=== PATIENT | male | born 1955 ===

== ENCOUNTER 2017-10-07 11:34 | Emergency (ER) | payer OTHER ==
[2017-10-07 11:41] VITALS: BP 152/98; PULSE 93; TEMP 98; O2SAT 99; BMI 21.5
[2017-10-07] MEDS ORDERED: Sodium Chloride 0.9% 1,000 ML IV STA (11:54)
--- NOTE | 2017-10-07 11:58 | ED PDOC ---
HPI: General Adult Time Seen by Provider: 10/07/17 11:42 Chief Complaint (Nursing): Back Pain Chief Complaint (Provider): Back pain History Per: Patient History/Exam Limitations: no limitations Onset/Duration Of Symptoms: Days (yesterday) Have you had recent travel within the past 21 days to any of the following countries: [place], [place], [place] or [place]?: Yes Additional Complaint(s): Pt. with left lower abd pain and left lower back. Accidentally fell yesterday and landed on the left side in the bathroom. No head, neck, chest, extremity injury. Was able to get up and move around. Currently pain on moving around. Did not take any meds. No numbness, tingles, weakness, dizziness, facial pain, dysuria. Past Medical History Reviewed: Nursing Documentation, Vital Signs Vital Signs: Last Vital Signs Temp 98 F 10/07/17 11:40 Pulse 93 H 10/07/17 11:40 Resp BP 152/98 H 10/07/17 11:40 Pulse Ox 99 10/07/17 12:07 - Medical History PMH: No Chronic Diseases - Surgical History Surgical History: No Surg Hx - Family History Family History: States: Unknown Family Hx - Living Arrangements Living Arrangements: With Family - Social History Current smoker - smoking cessation education provided: No Alcohol: None Drugs: Denies - Home Medications Home Medications: Ambulatory Orders Medication Instructions Recorded Ibuprofen [Motrin] 600 mg PO TID 7 Days tab 10/07/17 - Allergies Allergies/Adverse Reactions: Allergies Allergy/AdvReac Type Severity Reaction Status Date / Time No Known Allergies Allergy Verified 10/07/17 11:53 Review of Systems ROS Statement: Except As Marked, All Systems Reviewed And Found Negative Gastrointestinal: Positive for: Abdominal Pain Musculoskeletal: Positive for: Back Pain Physical Exam - Reviewed Nursing Documentation Reviewed: Yes Vital Signs Reviewed: Yes - Physical Exam Appears: Positive for: Non-toxic, No Acute Distress Head Exam: Positive for: ATRAUMATIC, NORMAL INSPECTION, NORMOCEPHALIC Skin: Positive for: Normal Color, Warm, DRY Eye Exam: Positive for: EOMI, Normal appearance, PERRL ENT: Positive for: Normal ENT Inspection Neck: Positive for: Normal, Painless ROM Cardiovascular/Chest: Positive for: Regular Rate, Rhythm Respiratory: Positive for: CNT, Normal Breath Sounds Gastrointestinal/Abdominal: Positive for: Bowel Sounds, Soft, Tenderness (L lower abd) Back: Positive for: Other (left lower back hand). Negative for: L CVA Tenderness, R CVA Tenderness Extremity: Positive for: Normal ROM Neurologic/Psych: Positive for: Alert, Oriented - Laboratory Results Result Diagrams: 10/07/17 12:16 10/07/17 12:16 Interpretation Of Abn Labs: no acute Urine dip results: Negative for: Blood - ECG O2 Sat by Pulse Oximetry: 99 Pulse Ox Interpretation: Normal - Progress ED Course And Treament: CT neg 1417: Stable. AAOx3. Pain free. Tolerated PO. No trauma pathology. Fu with pcp. Disposition - Clinical Impression Clinical Impression: Back pain, Abdominal trauma - Patient ED Disposition Is Patient to be Admitted: No Counseled Patient/Family Regarding: Studies Performed, Diagnosis, Need For Followup, Rx Given - Disposition Referrals: [facility] [Outside] - 10/08/17 Disposition: Routine/Home Disposition Time: 14:18 Condition: STABLE Additional Instructions: Return if not better in 3 days. Prescriptions: Ibuprofen [Motrin] 600 mg PO TID 7 Days tab Instructions: Low Back Pain (DC)
[2017-10-07] MEDS ORDERED: Morphine 4 MG/ML VIAL ONE (12:18)
[2017-10-07 12:28] LABS: BASO % 0.5 % (0.0-2.0); EOS % 0.3 % (0.0-4.0); HEMOGLOBIN 14.7 g/dL (12.0-18.0); LYMPH # 0.8 K/uL (1.0-4.3); LYMPH % 14.7 % (20.0-40.0); MEAN CELL VOLUME 103.3 fl (80.0-94.0); MEAN CORPUSCULAR HEMOGLOBIN 35.4 pg (27.0-31.0); MEAN CORPUSCULAR HGB CONC 34.3 g/dL (33.0-37.0); MEAN PLATELET VOLUME 7.5 fl (7.2-11.7); MONO # 0.5 K/uL (0.0-0.8); NEUT # 4.1 K/uL (1.8-7.0); NEUT % 74.5 % (50.0-75.0); RBC 4.15 Mil/uL (4.40-5.90); RED CELL DISTRIBUTION WIDTH 13.4 % (11.5-14.5); WHITE BLOOD COUNT 5.5 K/uL (4.8-10.8)
[2017-10-07 12:30] LABS: BLOOD UREA NITROGEN 8 mg/dl (9-20); CALCIUM 9.2 mg/dL (8.4-10.2); GFR AFRICAN-AMERICAN > 60; GFR NON-AFRICAN AMERICAN > 60
[2017-10-07] MEDS ORDERED: Iohexol 300 100 ML IJ ONE (12:46)
[2017-10-07] MEDS ORDERED: Sodium Chloride 0.9% 100 ML ONE (12:46)
--- NOTE | 2017-10-07 13:56 | CT ---
PROCEDURE: CT Abdomen and Pelvis with contrast HISTORY: trauma; pain L back and L abd/pelvis COMPARISON: None. TECHNIQUE: Contrast dose: 95 mL Omnipaque 300 Radiation dose: Total exam DLP = 276.5 mGy-cm. This CT exam was performed using one or more of the following dose reduction techniques: Automated exposure control, adjustment of the mA and/or kV according to patient size, and/or use of iterative reconstruction technique. FINDINGS: LOWER THORAX: Heart size normal. Emphysematous changes. No focal consolidation or pleural effusion. LIVER: Hepatic steatosis. No gross lesion or ductal dilatation. GALLBLADDER AND BILE DUCTS: Unremarkable. PANCREAS: Unremarkable. No gross lesion or ductal dilatation. SPLEEN: Unremarkable. ADRENALS: Unremarkable. No mass. KIDNEYS AND URETERS: Unremarkable. No hydronephrosis. No solid mass. VASCULATURE: Unremarkable. No aortic aneurysm. BOWEL: Unremarkable. No obstruction. No gross mural thickening. APPENDIX: Normal appendix. PERITONEUM: Fat containing left inguinal hernia. No free fluid. No free air. LYMPH NODES: Unremarkable. No enlarged lymph nodes. BLADDER: Unremarkable. REPRODUCTIVE: Unremarkable. BONES: No acute fracture. OTHER FINDINGS: None. IMPRESSION: No acute abdominal pelvic pathology.
== END 2017-10-07 14:34 | disposition home or self-care (01) ==
LOC: H.ER 11:34
DX: M54.9 Dorsalgia, unspecified (principal); W19.XXXA Unspecified fall, initial encounter; Y92.89 Other specified places as the place of occurrence of the external cause
CPT/HCPCS: 74177; 80048; 85025; 96374; 99282; J2270; J7040; Q9967

== ENCOUNTER 2018-05-23 10:07 | Inpatient (IN) | payer OTHER ==
[2018-05-23 10:18] VITALS: BMI 21.4
--- NOTE | 2018-05-23 10:55 | ED PDOC ---
HPI: Back Time Seen by Provider: 05/23/18 10:33 Chief Complaint (Nursing): Back Pain Chief Complaint (Provider): severe back pain History Per: Patient History/Exam Limitations: no limitations Onset/Duration Of Symptoms: Days (5+) Current Symptoms Are (Timing): Still Present Quality Of Discomfort: Sharp Severity: Severe Previous Symptoms: Back Pain Associated Symptoms: None Exacerbating Factor(s): Turning, Movement, Sitting, Standing Additional Complaint(s): 63yo male c/o worsening low back pain radiating to R foot w some difficulty ambulating. Denies fever, or focal weakness. States drinks beers occasionally, last drink 15 days ago. Active smoker. Took naprosyn for pain this morning. Past Medical History Reviewed: Historical Data, Nursing Documentation, Vital Signs Vital Signs: Last Vital Signs Temp 97.6 F 05/23/18 10:16 Pulse 84 05/23/18 10:16 Resp 20 05/23/18 10:16 BP 135/84 05/23/18 10:16 Pulse Ox 99 05/23/18 10:16 - Medical History PMH: Back Problems - Family History Family History: States: Unknown Family Hx - Living Arrangements Living Arrangements: With Family - Social History Current smoker - smoking cessation education provided: Yes Alcohol: Occasional - Home Medications Home Medications: Ambulatory Orders Medication Instructions Recorded Naproxen [Naprosyn] 500 mg PO Q12 PRN 05/23/18 - Allergies Allergies/Adverse Reactions: Allergies Allergy/AdvReac Type Severity Reaction Status Date / Time No Known Allergies Allergy Verified 10/07/17 11:53 Review of Systems ROS Statement: Except As Marked, All Systems Reviewed And Found Negative Constitutional: Negative for: Fever Cardiovascular: Negative for: Chest Pain Respiratory: Negative for: Shortness of Breath Gastrointestinal: Negative for: Abdominal Pain Musculoskeletal: Positive for: Back Pain, Leg Pain Skin: Negative for: Rash, Lesions Neurological: Positive for: Numbness. 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 Negative for: Facial Droop - Laboratory Results Result Diagrams: 05/23/18 11:25 05/23/18 11:25 - ECG ECG: Positive for: Interpreted By Me ECG Rhythm: Positive for: Normal QRS, Sinus Rhythm. Negative for: ST/T Changes Rate: 72 O2 Sat by Pulse Oximetry: 99 Pulse Ox Interpretation: Normal Medical Decision Making Medical Decision Making: d/w Dr Graves patient's neurosurgeon rec obs admission for eval as exhausted outpatient options CXR read as nodule R hilum, given smoking history, obtain CT chest to gauge for malignancy, Dr Sanches admitting MD aware. Disposition - Clinical Impression Clinical Impression: Acute back pain - Patient ED Disposition Is Patient to be Admitted: Yes - Disposition Disposition Time: 10:57 Condition: STABLE - Pt Status Changed To: Hospital Disposition Of: Observation
--- NOTE | 2018-05-23 11:07 | RAD ---
Date of service: 05/23/2018 HISTORY: Chest pain COMPARISON: No prior. TECHNIQUE: Chest PA and lateral FINDINGS: LINES AND TUBES: None. LUNG AND PLEURA: The lungs are hyperinflated and there is peribronchial thickening with chronic changes in both lungs. There is an apparent 12 mm nodular opacity in the right perihilar region. No pleural effusion or pneumothorax. HEART AND MEDIASTINUM: The heart is not enlarged. No aortic atherosclerotic calcification present. The hilar and mediastinal contours are within normal limits. SKELETAL STRUCTURES: The bony structures are within normal limits for the patient's age. VISUALIZED UPPER ABDOMEN: Normal. OTHER FINDINGS: None. IMPRESSION: No active pulmonary disease. COPD. Apparent 12 mm nodular opacity in the right perihilar region is nonspecific, dedicated CT scan without intravenous contrast is recommended to exclude parenchymal nodule. The final report has been tagged to the PA review folder.
[2018-05-23 11:15] LABS: URINE BILIRUBIN NEGATIVE (NEGATIVE); URINE BLOOD NEGATIVE (NEGATIVE); URINE CLARITY CLEAR (Clear); URINE COLOR YELLOW (YELLOW); URINE GLUCOSE (UA) NEG (NEGATIVE); URINE LEUKOCYTE ESTERASE NEG Leu/uL (Negative); URINE PROTEIN NEGATIVE (NEGATIVE); URINE UROBILINOGEN 0.2-1.0 mg/dL (0.2-1.0)
[2018-05-23 11:35] LABS: BASO % 0.4 % (0.0-2.0); EOS # 0.1 K/uL (0.0-0.7); EOS % 0.7 % (0.0-4.0); HEMOGLOBIN 14.4 g/dL (12.0-18.0); LYMPH # 1.3 K/uL (1.0-4.3); MEAN CELL VOLUME 105.5 fl (80.0-94.0); MEAN CORPUSCULAR HEMOGLOBIN 35.3 pg (27.0-31.0); MEAN CORPUSCULAR HGB CONC 33.5 g/dL (33.0-37.0); MEAN PLATELET VOLUME 7.5 fl (7.2-11.7); MONO # 0.9 K/uL (0.0-0.8); MONO % 10.9 % (0.0-10.0); NEUT # 5.7 K/uL (1.8-7.0); NRBC % 0.1 % (0.0-0.0); RBC 4.08 Mil/uL (4.40-5.90)
[2018-05-23 11:39] LABS: PROTHROMBIN TIME 10.8 Seconds (9.8-13.1)
[2018-05-23 11:42] LABS: PARTIAL THROMBOPLASTIN TIME 27.3 Seconds (25.6-37.1)
[2018-05-23 11:46] LABS: ALB/GLOB RATIO 1.4 (1.0-2.1); ALBUMIN 4.3 g/dL (3.5-5.0); ALT/SGPT 62 U/L (21-72); AST/SGOT 38 U/L (17-59); BLOOD UREA NITROGEN 12 mg/dl (9-20); CALCIUM 9.3 mg/dL (8.4-10.2); GFR NON-AFRICAN AMERICAN > 60
--- NOTE | 2018-05-23 13:31 | CT ---
Date of service: 05/23/2018 PROCEDURE: CT Chest without contrast HISTORY: nodule on CXR, due for spinal surgery COMPARISON: Not available TECHNIQUE: Contiguous axial images were obtained through the chest without intravenous contrast enhancement. Sagittal and coronal reconstructions were performed. Radiation dose (DLP): 259.72 mGy-cm. This CT exam was performed using one or more of the following dose reduction techniques: Automated exposure control, adjustment of the mA and/or kV according to patient size, and/or use of iterative reconstruction technique. FINDINGS: LUNGS: No pulmonary infiltrate. Mild centrilobular pulmonary emphysema. 1.4 cm partially calcified mass in the superior segment right lower lobe containing both nodular calcification as well as probable fat attenuation material. Findings consistent with calcified hamartoma. Rule out calcified granuloma. No other pulmonary mass is identified. MEDIASTINUM: Unremarkable thoracic aorta. No aneurysm. Normal sized heart. Main pulmonary artery unremarkable. No vascular congestion. No lymphadenopathy. No aortic atherosclerotic calcification or mural plaque present. PLEURA: No pleural fluid. No pneumothorax. BONES: No fracture. No destructive lesion. UPPER ABDOMEN: Grossly unremarkable. OTHER FINDINGS: None. IMPRESSION: Probable calcified hamartoma in superior segment right lower lobe. No other pulmonary mass. Mild centrilobular pulmonary emphysema. No other significant abnormality.
--- NOTE | 2018-05-23 13:35 | CP.PCM.HP ---
<Jane Ratliff - Last Filed: 05/23/18 15:03> History of Present Illness - History of Present Illness History of Present Illness: 63 yo M with newly diagnosed hyperlipidemia (states was prescribed statin 2 weeks ago but has not started taking it yet) and hx of fall, admitted for intractable back pain. Pt sustained a fall 3 months ago, and has been having progressively worsening low back pain since then. At worst, pain is 10/10, and is usually around 7-8/10. Pain travels from lower back down posterior right thigh to right lower extremity. Reports parasthesias of RLE. Reports pain as sharp and pressure-like. He states he has tried NSAIDS (naproxen) and exercises, but pain has not subsided. ROS: pain and weakness as above; denies chest pain, fevers/chills, difficulty breathing, difficulties with voiding/stooling. PMD: Dr. Gold Med hx: hld Surg hx: R inguinal hernia repair, varicose veins Social hx: current smoker, 1 ppd since age 20. Alcohol - can drink 1-2 beers a day, but has not drank in 2 weeks because has been taking more pain medications and did not want to mix. Denies drug use. Fam hx: noncontributory Allergies: nkda Meds: naproxen, (prescribed statin but has not started yet) Present on Admission - Present on Admission Any Indicators Present on Admission: No Past Patient History - Infectious Disease Hx of Infectious Diseases: None - Past Social History Smoking Status: Heavy Smoker > 10 Cigarettes Daily Alcohol: Occasional Drugs: Denies Home Situation {Lives}: With Family - CARDIAC Hx Cardiac Disorders: Yes (High Cholesterol) - PULMONARY Hx Respiratory Disorders: No - NEUROLOGICAL Hx Neurological Disorder: No - HEENT Hx HEENT Problems: No - RENAL Hx Chronic Kidney Disease: No - ENDOCRINE/METABOLIC Hx Endocrine Disorders: No - HEMATOLOGICAL/ONCOLOGICAL Hx Blood Disorders: No - INTEGUMENTARY Hx Dermatological Problems: No - MUSCULOSKELETAL/RHEUMATOLOGICAL Hx Musculoskeletal Disorders: Yes (Herniated Disk) - GENITOURINARY/GYNECOLOGICAL Hx Genitourinary Disorders: No - PSYCHIATRIC Hx Psychophysiologic Disorder: Yes (Depression) - SURGICAL HISTORY Hx Surgeries: No - ANESTHESIA Hx Anesthesia: No Meds Allergies/Adverse Reactions: Allergies Allergy/AdvReac Type Severity Reaction Status Date / Time No Known Allergies Allergy Verified 10/07/17 11:53 Physical Exam - Constitutional Appears: Non-toxic Additional comments: somewhat uncomfortable - Head Exam Head Exam: NORMAL INSPECTION - Eye Exam Eye Exam: Normal appearance - ENT Exam ENT Exam: Mucous Membranes Moist - Respiratory Exam Respiratory Exam: Clear to Auscultation Bilateral, NORMAL BREATHING PATTERN. absent: Wheezes - Cardiovascular Exam Cardiovascular Exam: REGULAR RHYTHM, +S1, +S2 - GI/Abdominal Exam GI & Abdominal Exam: Normal Bowel Sounds, Soft - Extremities Exam Extremities exam: Positive for: normal inspection. Negative for: calf tenderness Additional comments: RLE: pt reports more parasthesia on RLE; cannot fully plantar flex RLE - Back Exam Back exam: NORMAL INSPECTION - Neurological Exam Neurological exam: Alert, Oriented x3 - Psychiatric Exam Psychiatric exam: Normal Affect - Skin Skin Exam: Dry, Normal Color, Warm Results - Vital Signs Recent Vital Signs: Last Vital Signs Temp 98.2 F 05/23/18 13:06 Pulse 72 05/23/18 13:06 Resp 16 05/23/18 13:06 BP 131/85 05/23/18 13:06 Pulse Ox 99 05/23/18 12:42 - Labs Result Diagrams: 05/23/18 11:25 05/23/18 11:25 Labs: Laboratory Results - last 24 hr 05/23/18 05/23/18 05/23/18 10:36 11:25 11:25 WBC 8.0 RBC 4.08 L Hgb 14.4 Hct 43.0 MCV 105.5 H D MCH 35.3 H MCHC 33.5 RDW 13.0 Plt Count 286 MPV 7.5 Neut % (Auto) 72.0 Lymph % (Auto) 16.0 L [place] % (Auto) 10.9 H Eos % (Auto) 0.7 Baso % (Auto) 0.4 Neut # (Auto) 5.7 Lymph # (Auto) 1.3 [place] # (Auto) 0.9 H Eos # (Auto) 0.1 Baso # (Auto) 0.0 PT INR APTT Sodium 137 Potassium 4.4 Chloride 101 Carbon Dioxide 27 Anion Gap 13 BUN 12 Creatinine 0.8 Est GFR ( Amer) > 60 Est GFR (Non-Af Amer) > 60 Random Glucose 102 Calcium 9.3 Total Bilirubin 0.3 AST 38 ALT 62 Alkaline Phosphatase 67 Total Protein 7.4 Albumin 4.3 Globulin 3.1 Albumin/Globulin Ratio 1.4 Urine Color Yellow Urine Clarity Clear Urine pH 6.0 Ur Specific [place] 1.009 Urine Protein Negative Urine Glucose (UA) Neg Urine Ketones Negative Urine Blood Negative Urine Nitrate Negative Urine Bilirubin Negative Urine Urobilinogen 0.2-1.0 Ur Leukocyte Esterase Neg Alcohol, Quantitative < 10 05/23/18 11:25 WBC RBC Hgb Hct MCV MCH MCHC RDW Plt Count MPV Neut % (Auto) Lymph % (Auto) [place] % (Auto) Eos % (Auto) Baso % (Auto) Neut # (Auto) Lymph # (Auto) [place] # (Auto) Eos # (Auto) Baso # (Auto) PT 10.8 INR 1.0 APTT 27.3 Sodium Potassium Chloride Carbon Dioxide Anion Gap BUN Creatinine Est GFR ( Amer) Est GFR (Non-Af Amer) Random Glucose Calcium Total Bilirubin AST ALT Alkaline Phosphatase Total Protein Albumin Globulin Albumin/Globulin Ratio Urine Color Urine Clarity Urine pH Ur Specific [place] Urine Protein Urine Glucose (UA) Urine Ketones Urine Blood Urine Nitrate Urine Bilirubin Urine Urobilinogen Ur Leukocyte Esterase Alcohol, Quantitative Assessment & Plan - Assessment and Plan (Free Text) Assessment: 63 yo M with newly diagnosed hyperlipidemia and hx of fall, admitted for intractable back pain and RLE weakness/parasthesia x 3 months, progressively worsening and not improving with NSAIDs and exercise. Incidentally found to have pulmonary nodule on CXR; chest CT showed calcified hamartoma in superior segment lower love and mild emphysema. EKG NSR. Plan: - Admitted to med surg - Neurosurgery consult - Dr. Graves - Home meds resumed - Monitor vitals - Reg diet - Pepcid - SCDs Discussed w/ Dr. Sanches. <Rayshawn Sanches - Last Filed: 05/24/18 14:21> Results - Vital Signs Recent Vital Signs: Last Vital Signs Temp 97.7 F 05/24/18 13:54 Pulse 74 05/24/18 13:54 Resp 18 05/24/18 12:30 BP 102/67 05/24/18 13:54 Pulse Ox 98 05/24/18 13:54 - Labs Result Diagrams: 05/24/18 06:20 05/24/18 06:20 Labs: Laboratory Results - last 24 hr 05/24/18 05/24/18 05/24/18 04:50 06:20 06:20 WBC 6.2 RBC 4.34 L Hgb 15.1 Hct 45.4 MCV 104.5 H MCH 34.7 H MCHC 33.2 RDW 13.0 Plt Count 297 MPV 7.3 Neut % (Auto) 44.6 L Lymph % (Auto) 37.3 [place] % (Auto) 13.8 H Eos % (Auto) 3.5 Baso % (Auto) 0.8 Neut # (Auto) 2.8 Lymph # (Auto) 2.3 [place] # (Auto) 0.9 H Eos # (Auto) 0.2 Baso # (Auto) 0.0 Sodium 140 Potassium 4.0 Chloride 104 Carbon Dioxide 27 Anion Gap 13 BUN 11 Creatinine 0.8 Est GFR ( Amer) > 60 Est GFR (Non-Af Amer) > 60 Random Glucose 97 Calcium 9.3 Total Bilirubin 0.5 AST 40 ALT 65 Alkaline Phosphatase 65 Total Protein 7.2 Albumin 4.3 Globulin 3.0 Albumin/Globulin Ratio 1.4 Vitamin B12 382 Assessment & Plan - Assessment and Plan (Free Text) Plan: Patient was personally seen and examined by me in rounds with residents. Available labs and diagnostic data reviewed. Case, Patient's condition and management plan discussed with residents in rounds. Agree with resident's progress note. Plan: As ordered.
[2018-05-23] MEDS ORDERED: Naproxen 500 MG TAB PO PRN (13:42)
--- NOTE | 2018-05-23 23:22 | CARD ---
APPROVED REPORT Date of service: 05/23/2018 EKG Measurement Heart [id number] <Conclusion> Normal sinus rhythm Normal ECG
[2018-05-24 06:31] LABS: BASO % 0.8 % (0.0-2.0); EOS # 0.2 K/uL (0.0-0.7); EOS % 3.5 % (0.0-4.0); HEMOGLOBIN 15.1 g/dL (12.0-18.0); LYMPH # 2.3 K/uL (1.0-4.3); LYMPH % 37.3 % (20.0-40.0); MEAN CELL VOLUME 104.5 fl (80.0-94.0); MEAN CORPUSCULAR HEMOGLOBIN 34.7 pg (27.0-31.0); MEAN CORPUSCULAR HGB CONC 33.2 g/dL (33.0-37.0); MEAN PLATELET VOLUME 7.3 fl (7.2-11.7); MONO # 0.9 K/uL (0.0-0.8); MONO % 13.8 % (0.0-10.0); NEUT # 2.8 K/uL (1.8-7.0); NEUT % 44.6 % (50.0-75.0); NRBC % 0.1 % (0.0-0.0); RBC 4.34 Mil/uL (4.40-5.90); WHITE BLOOD COUNT 6.2 K/uL (4.8-10.8)
[2018-05-24 06:42] LABS: ALB/GLOB RATIO 1.4 (1.0-2.1); ALBUMIN 4.3 g/dL (3.5-5.0); ALT/SGPT 65 U/L (21-72); AST/SGOT 40 U/L (17-59); BLOOD UREA NITROGEN 11 mg/dl (9-20); CALCIUM 9.3 mg/dL (8.4-10.2); GFR NON-AFRICAN AMERICAN > 60
[2018-05-24] MEDS ORDERED: Bupivacaine HCl 0.5% PF (30 ml) Inj ONE (07:23)
[2018-05-24] MEDS ORDERED: Lidocaine 1% Inj (20ml) ONE (07:24)
[2018-05-24] MEDS ORDERED: Lidocaine 1% w Epi 1:100,000 Inj ONE (07:24)
[2018-05-24] MEDS ORDERED: Thrombin Topical 5,000 Int Units Spray Kit ONE (07:24)
[2018-05-24] MEDS ORDERED: Propofol 10 mg/ml Inj (20 ML) ONE (07:28)
[2018-05-24] MEDS ORDERED: Midazolam 2 MG/2 ML VIAL ONE (07:29)
[2018-05-24] MEDS ORDERED: Rocuronium 10 mg/ml (5 ml) ONE (07:29)
[2018-05-24] MEDS ORDERED: Absorbable Gelatin Sponge Size 12-7 TP ONE (08:20)
[2018-05-24] MEDS ORDERED: Lactated Ringer's 1,000 ML IV ONE (08:20)
[2018-05-24] MEDS ORDERED: HEMOSTATIC MATRIX 10 ML DIS.NEEDLE TOP ONE (08:28)
--- NOTE | 2018-05-24 10:09 | CP.PCM.PN ---
<Jane Ratliff - Last Filed: 05/24/18 10:14> Subjective - Date & Time of Evaluation Date of Evaluation: 05/24/18 Time of Evaluation: 07:10 - Subjective Subjective: Pt seen/evaluated at bedside with Dr. Sanches this morning. No acute events overnight; still with low back pain as yesterday. No chest pain, shortness of breath, other discomfort except as above. Pending OR. Objective - Vital Signs/Intake and Output Vital Signs (last 24 hours): Temp Pulse Resp BP Pulse Ox 98.4 F 77 18 105/69 99 05/24/18 09:27 05/24/18 09:45 05/24/18 09:45 05/24/18 09:45 05/24/18 09:45 Intake and Output: 05/24/18 05/24/18 06:59 18:59 Intake Total 1000 Balance 1000 - Medications Medications: Current Medications Famotidine (Pepcid) 20 mg PO DAILY [facility] Last Admin: 05/24/18 08:50 Dose: Not Given Hydromorphone HCl (Dilaudid) 0.5 mg IVP Q5M PRN PRN Reason: Pain, moderate (4-7) Stop: 05/24/18 11:32 Lactated Ringer's (Lactated Ringer's) 1,000 mls @ 75 mls/hr IV .[id number] [facility] Naproxen (Naproxen) 500 mg PO Q12 PRN PRN Reason: Pain, moderate (4-7) - Labs Labs: 05/24/18 06:20 05/24/18 06:20 PT 10.8 Seconds (9.8-13.1) 05/23/18 11:25 INR 1.0 05/23/18 11:25 APTT 27.3 Seconds (25.6-37.1) 05/23/18 11:25 - Constitutional Appears: No Acute Distress - Head Exam Head Exam: NORMAL INSPECTION - Eye Exam Eye Exam: Normal appearance - ENT Exam ENT Exam: Mucous Membranes Moist - Respiratory Exam Respiratory Exam: Clear to Ausculation Bilateral, NORMAL BREATHING PATTERN - Cardiovascular Exam Cardiovascular Exam: REGULAR RHYTHM - GI/Abdominal Exam GI & Abdominal Exam: Soft. absent: Tenderness - Extremities Exam Extremities Exam: absent: Calf Tenderness - Neurological Exam Neurological Exam: Alert, Awake - Skin Skin Exam: Dry, Warm Assessment and Plan - Assessment and Plan (Free Text) Assessment: 63 yo M with newly diagnosed hyperlipidemia and hx of fall, admitted for intractable back pain and RLE weakness/parasthesia x 3 months, progressively worsening and not improving with NSAIDs and exercise. Incidentally found to have pulmonary nodule on CXR; chest CT showed calcified hamartoma in superior segment lower love and mild emphysema. EKG NSR. Pending OR today. Plan: - Neurosurgery consult - Dr. Graves; spoke with PA, pending OR today - Further pain control as per neurosurgery - Monitor vitals - Has been NPO; resume reg diet after surg - Pepcid - SCDs <Rayshawn Sanches K - Last Filed: 05/24/18 14:20> Objective - Vital Signs/Intake and Output Vital Signs (last 24 hours): Temp Pulse Resp BP Pulse Ox 97.7 F 74 18 102/67 98 05/24/18 13:54 05/24/18 13:54 05/24/18 12:30 05/24/18 13:54 05/24/18 13:54 Intake and Output: 05/24/18 05/24/18 11:59 23:59 Intake Total 1000 300 Output Total 75 Balance 1000 225 - Medications Medications: Current Medications Acetaminophen (Tylenol 325mg Tab) 975 mg PO Q6 EUSEBIO Cyclobenzaprine HCl (Flexeril) 5 mg PO Q8 PRN PRN Reason: Muscle spasm Famotidine (Pepcid) 20 mg PO DAILY [facility] Last Admin: 05/24/18 08:50 Dose: Not Given Lactated Ringer's (Lactated Ringer's) 1,000 mls @ 75 mls/hr IV .[id number] [facility] Last Admin: 05/24/18 12:30 Dose: 300 mls Cefazolin Sodium/Dextrose (Ancef Iv 1 Gm Duplex) 1 gm in 50 mls @ 50 mls/hr IVPB Q8 EUSEBIO; Protocol Ondansetron HCl (Zofran Inj) 4 mg IVP Q6 PRN PRN Reason: Nausea/Vomiting Oxycodone HCl (Oxycodone Immediate Release Tab) 5 mg PO Q4 PRN PRN Reason: Pain, moderate (4-7) Oxycodone HCl (Oxycodone Immediate Release Tab) 10 mg PO Q4 PRN PRN Reason: Pain, severe (8-10) Sennosides (Senokot Tab) 17.2 mg PO HS EUSEBIO - Labs Labs: 05/24/18 06:20 05/24/18 06:20 PT 10.8 Seconds (9.8-13.1) 05/23/18 11:25 INR 1.0 05/23/18 11:25 APTT 27.3 Seconds (25.6-37.1) 05/23/18 11:25 Assessment and Plan - Assessment and Plan (Free Text) Plan: Patient was personally seen and examined by me in rounds with residents. Available labs and diagnostic data reviewed. Case, Patient's condition and management plan discussed with residents in rounds. Agree with resident's progress note. Plan: As ordered.
[2018-05-24] MEDS: HYDROmorphone 0.5 mg/0.5 ml ISec IVP PRN ×2 (10:30→12:00)
--- NOTE | 2018-05-24 11:39 | PCM.SURG1 ---
Surgeon's Initial Post Op Note - Surgeon's Notes Surgeon: Joseph Graves MD Health Information Specialist: Harsh BEARD Type of Anesthesia: General Endo Pre-Operative Diagnosis: Lumbar spondylosis. LUmbar herniated disc Operative Findings: As above Post-Operative Diagnosis: same Operation Performed: Right L5-S1 laminotomy, microdiscectomy Specimen/Specimens Removed: no specimen sent Estimated Blood Loss: EBL {In ML}: 50 Blood Products Given: N/A Drains Used: Trent Perez (x1 ) Post-Op Condition: Good Date of Surgery/Procedure: 05/24/18 Time of Surgery/Procedure: 07:30
[2018-05-24] MEDS ORDERED: oxyCODONE 5 mg Immediate Release Tab PO PRN (11:43)
[2018-05-24] MEDS: Lactated Ringer's 1,000 ML IV SCH ×2 (12:30→22:14)
--- NOTE | 2018-05-24 13:36 | OP ---
PROCEDURE DATE: 05/24/2018 PREOPERATIVE DIAGNOSES: Lumbar spondylosis and herniated disc. POSTOPERATIVE DIAGNOSES: Lumbar spondylosis and herniated disc. PROCEDURES PERFORMED: Left L5-S1 hemilaminotomy, medial facetectomy, decompression; left L4-L5 hemilaminotomy, medial facetectomy, decompression, and removal of the herniated disc fragment; L4, L5 and S1 laminectomy and L4 to S1 posterolateral fusion. SURGEON: Joseph Graves MD INSTRUMENTS USED: Fluoroscopy has been used. Microscope has been used. PLATE SENSITIZER: CHIRAG Brar, who helped me perform the surgery, stayed throughout the case from the beginning to the end. DESCRIPTION OF PROCEDURE: The patient was brought to the operating room, anesthetized with general endotracheal anesthesia, and placed in a prone position on a Trent table. Care was taken to protect all pressure points. Back of the lumbar area was thoroughly prepped and draped in same sterile manner after marking the skin incision for lumbar laminectomy at L4 to S1. After prepping and draping the area, skin had been incised. Bleeding skin has been controlled with bipolar cutter tender. Later using a Bovie cutter tender, paraspinal muscles have been detached, attachments of spinous process and lamina of L4-L5 and L5-S1 on the right side. Alma retractor had been applied to alter the facet joint of L5-S1 and at this point under magnification by using a high-speed drill, the lamina of L5-S1, medial part of the L5-S1 have been drilled. Drilling was continued top and bottom of the ligamentum seen. Drilling was also continued on the medial part of the facets medial part of the facets and ligamentum flavum have been removed, node has been decompressed after doing a foraminotomy. After L4-L5 hemilaminotomy, medial facetectomy had been performed. Thinned out bone has been removed by using a fine Kerrison punch. Ligamentum flavum has been removed. dural tube retracted medially. There was a large herniated disc fragment extruded that has been removed, decompressing this area and foraminotomy was performed. After that lateral aspect of the facet joint, transverse process had been decorticated, demineralized bone placed in the area achieving a posterolateral fusion. Hemostasis was best achieved. Trent drain was placed in the wound and brought out through a separate stab neck skin incision. Muscles and fascia were closed with 1 Vicryl, subcutaneous tissue with 3-0 Vicryl, and the skin with intradermal 3-0 Vicryl stitches. The patient tolerated the procedure. After the procedure, mobilized to the recovery room in stabilized condition. Joseph Graves MD RACHEL
--- NOTE | 2018-05-24 15:32 | RAD ---
Date of service: 05/24/2018 PROCEDURE: Intraoperative Fluoroscopy. HISTORY: LUMBAR LAMINECTOMY FINDINGS: Fluoroscopic assistance was provided. Fluoroscopy time = 1.2 sec. Radiation dose = 0.2 mGy. Please refer to the operative report from YAMINI Monreal.
[2018-05-24] MEDS: oxyCODONE 10 mg Immediate Release Tab PO PRN (16:16)
[2018-05-24] MEDS: ceFAZolin IV 1 gm in Dextrose 1 GM/50 ML BAG IVPB SCH (16:57)
[2018-05-25] MEDS: ceFAZolin IV 1 gm in Dextrose 1 GM/50 ML BAG IVPB SCH ×3 (00:28→17:22)
[2018-05-25 07:03] LABS: BASO % 0.4 % (0.0-2.0); EOS % 0.6 % (0.0-4.0); HEMOGLOBIN 13.8 g/dL (12.0-18.0); LYMPH % 12.2 % (20.0-40.0); MEAN CELL VOLUME 103.2 fl (80.0-94.0); MEAN CORPUSCULAR HEMOGLOBIN 35.9 pg (27.0-31.0); MEAN CORPUSCULAR HGB CONC 34.8 g/dL (33.0-37.0); MEAN PLATELET VOLUME 7.6 fl (7.2-11.7); MONO # 0.8 K/uL (0.0-0.8); MONO % 10.1 % (0.0-10.0); NEUT # 6.5 K/uL (1.8-7.0); NEUT % 76.7 % (50.0-75.0); NRBC % 0.1 % (0.0-0.0); RBC 3.85 Mil/uL (4.40-5.90); RED CELL DISTRIBUTION WIDTH 12.9 % (11.5-14.5); WHITE BLOOD COUNT 8.5 K/uL (4.8-10.8)
[2018-05-25 07:16] LABS: ALB/GLOB RATIO 1.4 (1.0-2.1); ALBUMIN 3.7 g/dL (3.5-5.0); ALT/SGPT 69 U/L (21-72); AST/SGOT 45 U/L (17-59); BLOOD UREA NITROGEN 9 mg/dl (9-20); GFR NON-AFRICAN AMERICAN > 60
--- NOTE | 2018-05-25 12:43 | PN ---
DATE: 05/25/2018 SUBJECTIVE: The patient seen and examined. Interim events noted. The patient remains in regular medical floor status post spine surgery. The patient is awake, responsive, feels much better. No chest pain. No shortness of breath. He does feel that he needs to go to the bathroom, but cannot use . The patient needs to go to bathroom for which he needs to wait for his . Other than that, the patient has no other complaint. PHYSICAL EXAMINATION: GENERAL: The patient is in no acute distress. VITAL SIGNS: Stable. HEART: S1, S2 normal and regular. LUNGS: Good bilateral air exchange. ABDOMEN: Soft, nontender. No organomegaly. No fluid. Bowel sounds are present and normal. No sign of acute abdomen. No guarding. No rigidity. No rebound. EXTREMITIES: No edema. No calf swelling. No tenderness. No acute ischemia. CARDIOVASCULAR TECHNOLOGIST: Exam is essentially unchanged. DIAGNOSTIC DATA: Available diagnostic data reviewed. ASSESSMENT AND PLAN: Overall, the patient's general medical condition is stable. The patient has a LEE drain, which is draining some blood-tinged liquid. No sign of acute complication. Plan as ordered. Case and plan discussed with the patient. Rayshawn Sanches MD
[2018-05-25] MEDS: Lactated Ringer's 1,000 ML IV SCH (17:21)
[2018-05-26] MEDS: Lactated Ringer's 1,000 ML IV SCH ×3 (01:21→17:13)
[2018-05-26 07:47] LABS: HEMOGLOBIN 13.7 g/dL (12.0-18.0); MEAN CELL VOLUME 104.8 fl (80.0-94.0); MEAN CORPUSCULAR HEMOGLOBIN 35.4 pg (27.0-31.0); MEAN CORPUSCULAR HGB CONC 33.8 g/dL (33.0-37.0); RBC 3.86 Mil/uL (4.40-5.90); RED CELL DISTRIBUTION WIDTH 12.6 % (11.5-14.5); WHITE BLOOD COUNT 5.6 K/uL (4.8-10.8)
[2018-05-26 08:42] LABS: ALB/GLOB RATIO 1.3 (1.0-2.1); ALBUMIN 3.6 g/dL (3.5-5.0); ALT/SGPT 51 U/L (21-72); AST/SGOT 36 U/L (17-59); BLOOD UREA NITROGEN 7 mg/dl (9-20); CALCIUM 9.1 mg/dL (8.4-10.2); GFR NON-AFRICAN AMERICAN > 60
--- NOTE | 2018-05-26 12:15 | PN ---
DATE: 05/26/2018 SUBJECTIVE: Patient was seen and examined. Interim events noted. Patient remains in regular medical floor. Feels much better. Abdominal pain resolved. No acute postoperative problems. The chronic pain seems to be better. No chest pain or shortness of breath. PHYSICAL EXAMINATION: GENERAL: Patient is in no acute distress. VITAL SIGNS: Stable. HEART: S1 and S2 normal and regular. LUNGS: Good bilateral air exchange. ABDOMEN: Soft and nontender. EXTREMITIES: No edema. No calf swelling. No tenderness. No acute ischemia. CENTRAL NERVOUS SYSTEM: Essentially unchanged. DIAGNOSTIC DATA: Available diagnostic data reviewed. ASSESSMENT AND PLAN: Overall patient is medically stable and improving postoperatively. No acute postoperative complications. Plan as ordered. Rayshawn Sanches MD
[2018-05-26 16:55] VITALS: RESP 18
[2018-05-26] MEDS: oxyCODONE 10 mg Immediate Release Tab PO PRN (20:45)
[2018-05-27 00:13] VITALS: TEMP 97.9; O2SAT 95
[2018-05-27 08:29] VITALS: BP 144/85; PULSE 80
== END 2018-05-27 11:28 | disposition home health service (06) | DRG 460 ==
LOC: H.ER 10:07 → H.ERHOLD 11:09 → OBSVTOIN 11:39 → H.MEDSURG1 13:53
PROVIDERS: ADMIT Family Medicine; ATTEND Family Medicine
PROC: 0SG00J1 Fusion of Lumbar Vertebral Joint with Synthetic Substitute, Posterior Approach, Posterior Column, Open Approach (ICD-10-PCS; 2018-05-24)
PROC: 0ST20ZZ Resection of Lumbar Vertebral Disc, Open Approach (ICD-10-PCS; principal; 2018-05-24 07:45)
DX: M47.816 Spondylosis without myelopathy or radiculopathy, lumbar region (principal); M51.26 Other intervertebral disc displacement, lumbar region; G89.29 Other chronic pain; E78.00 Pure hypercholesterolemia, unspecified; E78.5 Hyperlipidemia, unspecified; F17.210 Nicotine dependence, cigarettes, uncomplicated; R91.1 Solitary pulmonary nodule; Z91.81 History of falling